=== PATIENT | female | born 1975 | race Caucasian/White ===

== ENCOUNTER 2017-11-02 09:18 | Emergency (ER) | payer BC, OTHER ==
[~2017-11-02] VITALS: Ht 170.2 cm; Wt 68.0 kg
--- NOTE | 2017-11-02 09:23 | NUR ---
PATIENT TO ED DT LEFT EYE BLURRY VISION AND HEADACHE SINCE 0700 TODAY. PATIENT IS AWAKE AND ALERT, DENIES DIZZINESS, NO NAUSEA NOR VOMITTING, SKIN IS WARM TO TOUCH AND NON DIAPHORETIC. AFEBRILE. VSS
--- NOTE | 2017-11-02 09:29 | NUR ---
MD KAN AT BEDSIDE
[2017-11-02 09:39] VITALS: BP 112/60
--- NOTE | 2017-11-02 09:41 | NUR ---
Patient discharged to home in stable condition. Written and verbal after care instructions given. Patient verbalizes understanding of instruction.
== END 2017-11-02 09:44 | disposition home or self-care (01) ==
LOC: ER 09:20
DX: H53.8 Other visual disturbances (principal); R51 Headache; Z88.2 Allergy status to sulfonamides
CPT/HCPCS: 99281; A4606; Z7610; Z7502